=== PATIENT | male | born 1990 ===

== ENCOUNTER 2018-06-03 17:16 | Emergency (ER) | payer OTHER ==
[2018-06-03 17:57] VITALS: BMI 31.5
--- NOTE | 2018-06-03 17:57 | ED PDOC ---
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 hand thumb smashing injury x 3 hours s/p from the machine. Pt. is a poor historian, stated that he was pulling the machine, smash by the chain/handle?, sustained laceration on the top of the rt. hand 1st digit with dark color nail of the 1st digit thumb, last tetanus under 3 years ago, no numbness or tingling, no diarrhea, no other medical or psychological complaints. Past Medical History - Provider Review Nursing Documentation Reviewed: Yes Family/Social History - Physician Review Nursing Documentation Reviewed: Yes Family/Social History: Unknown Family HX Allergies/Home Meds Allergies/Adverse Reactions: Allergies No Known Allergies Allergy (Verified 06/03/18 17:56) Review of Systems - Review of Systems Constitutional: absent: Fatigue, Fevers Eyes: absent: Vision Changes ENT: absent: Hearing Changes Respiratory: absent: SOB, Cough Cardiovascular: absent: Chest Pain Gastrointestinal: absent: Abdominal Pain, Nausea, Vomiting Musculoskeletal: Arthralgias Skin: Laceration. absent: Rash, Pruritis Neurological: absent: Headache, Dizziness Psychiatric: absent: Anxiety, Depression, Suicidal Ideation Physical Exam Vital Signs Reviewed: Yes Temperature: Afebrile Blood Pressure: Normal Pulse: Regular Respiratory Rate: Normal Appearance: Positive for: Well-Appearing, Non-Toxic, Comfortable Pain Distress: Moderate Mental Status: Positive for: Alert and Oriented X 3 - Systems Exam Head: Present: Atraumatic, Normocephalic Pupils: Present: PERRL Extroacular Muscles: Present: EOMI Conjunctiva: Present: Normal Mouth: Present: Moist Mucous Membranes Neck: Present: Normal Range of Motion Respiratory/Chest: Present: Clear to Auscultation, Good Air Exchange. No: Respiratory Distress, Accessory Muscle Use Cardiovascular: Present: Regular Rate and Rhythm, Normal S1, S2. No: Murmurs Abdomen: No: Tenderness, Distention, Peritoneal Signs Back: Present: Normal Inspection Upper Extremity: Present: Normal Inspection, Other (Rt. hand 1st digit thumb: +ttp and visible >75 percent subungal hematoma with no nail laceration or detachment/loosening, visible approximately 1.5cm superficial distal top of the thumb pad laceration without involving the nailbed, normal 2pts discrimination, FROM without limitation, sensation intact, motor 5/5, +radial pulse, capillary refill< 2 seconds, neurovascular intact. ). No: Cyanosis, Edema Lower Extremity: Present: Normal Inspection. No: Edema Neurological: Present: GCS=15, CN II-XII Intact, Speech Normal Skin: Present: Warm, Dry, Normal Color. No: Rashes Psychiatric: Present: Alert, Oriented x 3, Normal Insight, Normal Concentration Medical Decision Making ED Course and Treatment: 06/03/18 17:59 -Percocet -xray -suture and I&D the subungal hematoma -Observe and reassess 06/03/18 18:58 -Rt. hand xray: Er wet read: no fracture/dislocation. Procedure: Incision & Drainage Performed by the emergency provider Indication: subungal hematoma Location: Rt. hand 1st digit thumb Preparation: The area was prepped and draped in the usual sterile fashion and was cleansed with 1000cc normal saline, clean with betadine. Procedure: The subungal hematoma blocked, trephinated with 18G syringer, approximately 1cc of blood drained and the subungal hematoma resolved, no nail detachment or loosening. Pt. feels much better, pain resolved. Post-Procedure: On exam the subungal hematoma resolved, pain resolved. The patient tolerated the procedure well, and there were no complications. PROCEDURE: LACERATION REPAIR Performed by the emergency provider Location: Rt. hand 1st digit thumb Length: 1.5 cm Description: {"clean wound edges","no foreign bodies"} Distal CMS: Normal. No deficits. Neurovascularly intact. Anesthesia: Lidocaine 1% 1.5cc digital block of the rt. hand 1st digit thumb Preparation: The wound was cleaned with NS 1000cc and clean with betadine. The area was prepped and draped in the usual sterile fashion. Exploration: The wound was explored and no foreign bodies were found. Procedure: The wound was closed with 5-0 nylon. There was {good / appropriate / adequate / loose} approximation. In total, 5 were used. Post-Procedure: Good closure and hemostasis. The patient tolerated the procedure well and there were no complications. CSM remains intact. Post procedure dressing applied. 06/03/18 19:09 -Finger splint applied, discussed about the xray and he feels much better. -Discharge home with keflex, motrin, bacitracin oinment, ice compression, follow up with your own pmd and hand specialist within 2 days, return to the ER for any new or worsening signs or symptoms. - RAD Interpretation Radiology Orders: Date of service: 06/03/2018 PROCEDURE: Right Thumb radiographs. HISTORY: rt. hand thumb injury COMPARISON: None. TECHNIQUE: AP radiograph of the right hand, as well as spot oblique and lateral images of thumb were obtained. FINDINGS: RIGHT THUMB: Normal right thumb, without fracture or focal lesion. Remainder of the right hand (as seen on the AP view) grossly unremarkable. JOINTS: Normal. SOFT TISSUES: Normal. OTHER FINDINGS: None. IMPRESSION: Unremarkable right thumb radiographs. Concordant results with the preliminary interpretation rendered by the emergency department physician\\PA at the conclusion of the procedure. Business Writer: Radiologist - PA / CRIB TENDER / Resident Statement / has reviewed & agrees with the documentation as recorded. Disposition/Present on Arrival - Present on Arrival Any Indicators Present on Arrival: No History of DVT/PE: No History of Uncontrolled Diabetes: No Urinary Catheter: No History of Decub. Ulcer: No - Disposition Have Diagnosis and Disposition been Completed?: Yes Diagnosis: Hematoma, subungual, finger, Thumb laceration, Thumb injury Disposition: HOME/ ROUTINE Disposition Time: 19:07 Patient Plan: Discharge Condition: IMPROVED Additional Instructions: -Discharge home with keflex, motrin, bacitracin oinment, ice compression, follow up with your own pmd and hand specialist within 2 days, return to the ER for any new or worsening signs or symptoms. Prescriptions: Bacitracin Ointment [Bacitracin] 1 appful TOP BID #15 g Cephalexin [Keflex] 500 mg PO QID #28 capsule Ibuprofen [Motrin] 600 mg PO QID PRN #30 tab PRN Reason: Other Referrals: PCP,NO [Primary Care Provider] - Follow up with primary Eugene Myers III, MD [Medical Doctor] - [place] up with primary [facility] [place] - Follow up with primary Forms: WORK NOTE
[2018-06-03] MEDS ORDERED: Oxycodone/Acetaminophen 5/325 mg Tab PO STA (17:59)
[2018-06-03 18:04] VITALS: RESP 18
[2018-06-03 18:36] VITALS: BP 132/80; PULSE 84; TEMP 99; O2SAT 99
[2018-06-03] MEDS ORDERED: Bacitracin 500 Units/gm Oint Foilpak UD ONE (19:00)
[2018-06-03] MEDS ORDERED: Bacitracin Ointment 30 GM TUBE TOP STA (19:02)
--- NOTE | 2018-06-04 08:35 | RAD ---
Date of service: 06/03/2018 PROCEDURE: Right Thumb radiographs. HISTORY: rt. hand thumb injury COMPARISON: None. TECHNIQUE: AP radiograph of the right hand, as well as spot oblique and lateral images of thumb were obtained. FINDINGS: RIGHT THUMB: Normal right thumb, without fracture or focal lesion. Remainder of the right hand (as seen on the AP view) grossly unremarkable. JOINTS: Normal. SOFT TISSUES: Normal. OTHER FINDINGS: None. IMPRESSION: Unremarkable right thumb radiographs. Concordant results with the preliminary interpretation rendered by the emergency department physician procedure.
== END 2018-06-03 19:37 | disposition home or self-care (01) ==
LOC: ED 17:16
DX: S61.011A Laceration without foreign body of right thumb without damage to nail, initial encounter (principal); W23.0XXA Caught, crushed, jammed, or pinched between moving objects, initial encounter